=== PATIENT | male | born 1985 | race Caucasian/White ===

== ENCOUNTER 2022-05-20 21:05 | Emergency (ER) | payer OTHER ==
[2022-05-20 23:11] LABS: BASOPHIL 0.7 % (0-2); EOSINOPHIL 3.8 % (0-5); HCT 42.3 % (42.0-52.0); HGB 14.4 g/dl (13.2-18.0); LYMPHOCYTE 34.8 % (15-48); MONOCYTE 8.1 % (0-12); MPV 11.7 fL (6.0-9.5); NEUTROPHIL 52.2 % (41-80); NRBC 0; PLT 229 K/uL (150-400); RBC 4.65 M/uL (4.70-6.00); RDW 13.2 % (11.5-14.0); WBC 8.4 K/uL (4.0-10.5)
[2022-05-20 23:25] LABS: BUN/CREAT RATIO (CALC) 18.4 RATIO; CREATININE 1.03 mg/dL (0.67-1.17)
[2022-05-21 00:16] LABS: BILIRUBIN NEGATIVE (NEGATIVE); BLOOD NEGATIVE Ery/uL (NEGATIVE); CLARITY CLEAR (CLEAR); COLOR YELLOW (YELLOW); GLUCOSE (U) NORMAL (NORMAL); LEUKOCYTES NEGATIVE Leu/uL (NEGATIVE); NITRITE NEGATIVE (NEGATIVE); PROTEIN NEGATIVE (NEGATIVE); SPECIFIC GRAVITY 1.025 (1.001-1.030); UROBILINOGEN >=8.0 mg/dL (0.2-1.0)
[2022-05-21 00:23] LABS: AMPHETAMINES NEGATIVE (NEGATIVE); BARBITURATES NEGATIVE (NEGATIVE); ECSTASY (MDMA) NEGATIVE (NEGATIVE); MARIJUANA (THC) NEGATIVE (NEGATIVE); METHADONE NEGATIVE (NEGATIVE); OPIATES NEGATIVE (NEGATIVE); OXYCODONE NEGATIVE (NEGATIVE)
== END 2022-05-21 05:22 | disposition other institution (70) ==
LOC: FER 21:05
PROVIDERS: Nurse Practitioner Family
DX: R20.2 Paresthesia of skin (principal); R20.1 Hypoesthesia of skin; I10 Essential (primary) hypertension; E11.9 Type 2 diabetes mellitus without complications; Z79.84 Long term (current) use of oral hypoglycemic drugs; Z79.899 Other long term (current) drug therapy; Z28.310 Unvaccinated for COVID-19
CPT/HCPCS: 36415; 70450; 80048; 80305; 81003; 85025